=== PATIENT | male | born 1965 | race Caucasian/White ===

== ENCOUNTER → 2017-10-30 | Outpatient (CLI) | payer BC ==
[2017-10-30 13:23] LABS: HCT 52.8 % (39.0-53.0); HGB 17.8 gm/dL (13.0-17.5); MCH 33.8 pg (25.0-35.0); MCHC 33.7 g/dL (31.0-37.0); MCV 100.3 fL (80.0-100.0); Mean Platelet Volume 7.4; Platelet Count 309 k/uL (150-450); RBC 5.26 m/uL (4.30-5.90); WBC 9.6 k/uL (3.8-10.6)
[2017-10-30 13:40] LABS: ALT 43 U/L (21-72); AST 31 U/L (17-59); Albumin 4.5 g/dL (3.5-5.0); Alkaline Phosphatase 85 U/L (38-126); Anion Gap 14 mmol/L; Blood Urea Nitrogen 15 mg/dL (9-20); Calcium 9.9 mg/dL (8.4-10.2); Carbon Dioxide 25 mmol/L (22-30); Chloride 104 mmol/L (98-107); Cholesterol 227 mg/dL (<200); Glucose 95 mg/dL (74-99); HDL Cholesterol 46 mg/dL (40-60); LDL Cholesterol,Calculated 134 mg/dL (0-99); Potassium 4.7 mmol/L (3.5-5.1); Sodium 143 mmol/L (137-145); Total Bilirubin 0.5 mg/dL (0.2-1.3); Total Protein 7.2 g/dL (6.3-8.2); Triglycerides 236 mg/dL (<150)
== END | disposition home or self-care (01) ==
LOC: LABWHC1 12:45
PROVIDERS: ATTEND Internal Medicine
DX: E78.5 Hyperlipidemia, unspecified (principal); N52.9 Male erectile dysfunction, unspecified
CPT/HCPCS: 36415; 80053; 80061; 84402; 84403; 84550; 85027

== ENCOUNTER 2021-11-05 19:14 | Emergency (ER) | payer BC, OTHER ==
[2021-11-05 19:20] VITALS: TEMP 98
[2021-11-05] MEDS ORDERED: DIPH,PERTUS(ACELL)TETVAC-LF 0.5 ML VIAL IM ONE (19:38)
[2021-11-05] MEDS ORDERED: LIDOCAINE 1% INJ 10MG/ML (5 ML VIAL-PF) SQ ONE (19:38)
--- NOTE | 2021-11-05 20:13 | XR ---
EXAMINATION TYPE: XR hand complete LT DATE OF EXAM: 11/05/2021 COMPARISON: NONE HISTORY: Trauma. Pain TECHNIQUE: 3 views FINDINGS: Metacarpals are intact. I see no fracture nor dislocation. There is no sizable foreign body . Joint spaces are fairly normal. There is 1 mm metallic density projected apparently anterior to the second metacarpal head could be a small foreign body. IMPRESSION: No fracture. Possible foreign body at the second MP joint anteriorly.
[2021-11-05 20:58] VITALS: BP 149/100; PULSE 110; RESP 16
[2021-11-05] MEDS ORDERED: TOPICAL SKIN ADHESIVE 1 EACH AMP TOPICAL ONE (21:10)
[2021-11-05] MEDS ORDERED: CEPHALEXIN 500 MG CAP PO STA (21:22)
--- NOTE | 2021-11-05 21:26 | ED ---
Wound/Laceration HPI - General Chief Complaint: Wound/Laceration Stated Complaint: L hand finger lac Time Seen by Provider: 11/05/21 19:20 Source: patient Mode of arrival: ambulatory - History of Present Illness Initial Comments: 56-year-old male presents emergency department with a laceration to his left index finger. States that he was working on his lawnmower. He had turned the lawnmower off but stuck his hand underneath it before the blade had stopped spinning. He sustained a laceration to his left index finger. He is unsure when his last tetanus was. He placed compression site and immediately came into the hospital. Denies any restrictive range of motion. No numbness or tingling. Did not take any pain medications prior to coming in. No other alleviating, p recipitating often factors - Related Data Previous Rx's Medication Instructions Recorded Hydrocodone/Acetaminophen [[place] 1 - 2 each PO Q4HR PRN #40 tab 09/02/14 5-325] Cephalexin [Keflex] 500 mg PO Q6HR #20 cap 11/05/21 Allergies Allergy/AdvReac Type Severity Reaction Status Date / Time codeine Allergy EXTREME Verified 11/05/21 19:20 SEDATION Review of Systems ROS Statement: Those systems with pertinent positive or pertinent negative responses have been documented in the HPI. ROS Other: All systems not noted in ROS Statement are negative. Past Medical History Past Medical History: No Reported History History of Any Multi-Drug Resistant Organisms: None Reported Past Surgical History: Orthopedic Surgery Additional Past Surgical History / Comment(s): BILAT ANKLE SURGERIES Past Anesthesia/Blood Transfusion Reactions: Motion Sickness Past Psychological History: No Psychological Hx Reported Smoking Status: Current every day smoker Past Alcohol Use History: Occasional Past Drug Use History: Marijuana General Exam General appearance: alert, in no apparent distress Head exam: Present: atraumatic, normocephalic, normal inspection Extremities exam: Present: full ROM (normal cap refil. 2+ radial and ulnar pulses), other (skin avulsion distal tip left middle finger. No compromise of nailbed. no retained foreign bodies. bleeding controlled. normal cap refill. measures 1.0 x 1.0 cm. involves only epidermis and dermis) Course Vital Signs 11/05/21 11/05/21 19:16 20:54 Temperature 98 F Pulse Rate 122 H 110 H Respiratory 20 16 Rate Blood Pressure 149/100 O2 Sat by Pulse 98 97 Oximetry Medical Decision Making - Medical Decision Making Upon arrival patient was placed into room 1. History and physical exam is performed. X-ray of the hand is performed which demonstrates a foreign body near the 2nd MCP joint. Foreign body was not obtained today as there is no overlying disruption of the skin area. Digital block is performed of the patient's wound is washed out. It does only affects the distal tip of the finger therefore Dermabond is used. Patient will be initiated on antibiotics as was grossly contaminated. Patient is to keep the area clean and dry. Follow up with his primary care doctor in 2-4 days and return for any new or worsening symptoms. He is given referrals for primary care physicians. Patient agreement treatment plan and was discharged home in same condition Disposition Clinical Impression: Skin avulsion Disposition: HOME SELF-CARE Condition: Stable Instructions (If sedation given, give patient instructions): Diphtheria/Pertussis/Tetanus Vaccine (By injection), Skin Avulsion (ED) Additional Instructions: Do not soak your hand. Keep the area clean and dry. If you see any signs of infection, return to the emergency department. Your tetanus was updated today. Prescriptions: Cephalexin [Keflex] 500 mg PO Q6HR #20 cap Is patient prescribed a controlled substance at d/c from ED?: No Referrals: Carla Walls MD [Primary Care Provider] - 1-2 days Artemio Velarde MD [STAFF PHYSICIAN] - 1-2 days Silvio Interiano MD [STAFF PHYSICIAN] - 1-2 days Morgan Harper MD [STAFF PHYSICIAN] - 1-2 days Time of Disposition: 21:25
== END 2021-11-05 21:52 | disposition home or self-care (01) ==
LOC: EC 19:14
DX: S61.201A Unspecified open wound of left index finger without damage to nail, initial encounter (principal); F17.200 Nicotine dependence, unspecified, uncomplicated; F12.90 Cannabis use, unspecified, uncomplicated; W28.XXXA Contact with powered lawn mower, initial encounter
CPT/HCPCS: 73130; 90715; 12001; 90471; 99283; J2001